=== PATIENT | female | born 1995 | race Two or more races ===

== ENCOUNTER 2023-02-17 17:05 | Emergency (ER) | payer OTHER ==
[~2023-02-17] VITALS: Ht 157.5 cm; Wt 53.1 kg
== END 2023-02-17 21:32 | disposition home or self-care (01) ==
LOC: ER 17:06
DX: S90.872A Other superficial bite of left foot, initial encounter (principal); W56.81XA Bitten by other nonvenomous marine animals, initial encounter; Y93.89 Activity, other specified; Y92.832 Beach as the place of occurrence of the external cause; Y99.9 Unspecified external cause status